=== PATIENT | female | born 2000 | race African-American/Black ===

== ENCOUNTER 2018-05-10 13:37 | Emergency (ER) | payer OTHER, SELFPAY ==
[2018-05-10 13:46] VITALS: BP 116/78; PULSE 71; RESP 22; TEMP 36.8; O2SAT 100; BMI 21.2
[2018-05-10] MEDS: diphenhydrAMINE 50 MG/ML VIAL IM (13:56)
[2018-05-10] MEDS: HALOPERIDOL 5 MG/ML VIAL IM (13:56)
[2018-05-10] MEDS: LORazepam 2 MG/ML SYRINGE IM (13:56)
--- NOTE | 2018-05-10 14:04 | PC.NURSE ---
Per sister pt had PTSD. pt and sister are identical twins adopted from [place] when they were 4. pt does not have a good relationship with adoptive parents. when sister approached here today pt c/o not feeling good pt then vomited a few times. per sister she could tell pt started becoming anxious, when pt stated to sister get this out of me and pointed to her chest. pt then c/o heart hurting, beating fast. per sister she doesnt remember specifics about [place] but knows bad things happened. pt laying on stretcher holding onto sisters hand.
--- NOTE | 2018-05-10 14:21 | RT ---
Came by for EKG. Patient refusing at this time, saying she wants to sleep. Sister tried getting her to agree to doing it, but patient insists she wants to sleep, unable to hold still, very restless. Informed FACUNDO Ny of situation and offered to come back when patient more compliant.
--- NOTE | 2018-05-10 15:01 | ED.PSYCH ---
HPI - Psych General Chief Complaint: Psychiatric Symptoms Stated Complaint: PTSD Time Seen by Provider: 05/10/18 13:40 Source: patient and family Mode of arrival: ambulatory Limitations: altered mental status History of Present Illness HPI Narrative: 18-year-old nonsmoker with known history of anxiety, PTSD and ADHD presents with her sister and other family in an extremely upset state. We are called to the parking lot to assist parents getting her out of the car and she is flailing her arms and screaming. She has known psychiatric diagnoses as stated and has not been taking her meds for the past few days. She is under the care of a local therapist, currently that name is unknown. She is supposed to take Adderall, hydroxyzine, and sertraline. She has never had any psychiatric hospitalizations that are known. She normally does quite well and is unclear exactly what triggered her episode today. Twin sister is at the bedside and is very reluctant to talk about why patient has history of PTSD but had mentioned to a nurse that had to do with the untimely of her parents in [facility] MD complaint: altered mental status Onset (ago): hour(s) Duration: getting worse History of same: Yes Relieving factors: none Context: not taking psychiatric medications Related Data Home Medications Medication Instructions Recorded Confirmed levonorgestrel 20 mcg/24 hr (5 INTRAUTERINE each 01/13/18 01/13/18 years) intrauterine device Previous Rx's Medication Instructions Recorded dextroamphetamine-amphetamine ER 15 mg PO QDAY #30 cap 04/08/18 15 mg 24hr capsule,extend release hydroxyzine HCl 25 mg tablet 25 mg PO TID PRN #30 tab 04/08/18 sertraline 100 mg tablet 100 mg PO DAILY #30 tab 05/05/18 lorazepam 1 mg PO BID-TID PRN #10 tab 05/10/18 Allergies Allergy/AdvReac Type Severity Reaction Status Date / Time No Known Drug Allergies Allergy Verified 05/10/18 13:46 Review of Systems Review of Systems All systems reviewed & are unremarkable except as noted in HPI and below Constitutional Denies chills, Denies fever(s), Denies lethargy and Denies weakness Eyes Denies change in vision, Denies eye discharge, Denies irritation and Denies loss of vision ENT Ears, Nose, Mouth, and Throat: Denies change in voice, Denies neck pain and Denies sore throat Cardiovascular Denies chest pain, Denies irregular heart rhythm, Denies lightheadedness, Denies palpitations, Denies dyspnea, Denies dyspnea on exertion and Denies orthopnea Respiratory Denies cough, Denies dyspnea, Denies dyspnea on exertion and Denies wheezing Gastrointestinal Gastrointestinal: Denies abdominal pain, Denies change in bowel habits, Denies diarrhea, Denies nausea and Denies vomiting Genitourinary Denies hematuria, Denies flank pain, Denies urinary incontinence and Denies urinary urgency Musculoskeletal Denies neck pain Integumentary/Breasts Denies pruritus, Denies erythema, Denies rash and Denies wounds Neurologic Denies confusion, Denies loss of vision and Denies weakness Psychiatric Reports anxiety, Denies confusion, Denies depression, Reports panic attacks, Denies homicidal ideation and Denies suicidal ideation Endocrine Denies palpitations Hematologic/Lymphatic Denies easy bruising Allergic/Immunologic Denies wheezing PFSH Medical History ADHD (Chronic) Social History marital status: unmarried,single household members: other education level: college (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 She is flailing her arms and fighting, screaming nonsensically and posing tremendous risk to herself and others Initial Vital Signs Initial Vital Signs: Vital Signs Temperature 98.3 F 05/10/18 13:46 Pulse Rate 71 05/10/18 13:46 Respiratory Rate 22 05/10/18 13:46 Blood Pressure 116/78 05/10/18 13:46 Pulse Oximetry 100 05/10/18 13:46 Const General: acute distress, combative and diaphoretic Nutritional Appearance: thin Orientation: confused Limitations: altered mental status HENMT Head: normocephalic and atraumatic Ears: external ears normal and TM's normal bilaterally Nose: external nose normal and No nasal discharge Face and sinus: sinuses nontender, face symmetric, no sinus tenderness and No dry mucous membranes Mouth: oral mucosae normal and moist mucous membranes Teeth and gingiva: dentition normal Throat: tonsils normal and uvula midline Eyes General: appearance normal, both eyes and all related structures Eyelids: eyelids normal Conjunctivae: conjunctivae normal Sclera: sclerae normal Pupils: PERRL EOM: EOM intact bilaterally Neck Neck: normal visual inspection, trachea midline, No lymphadenopathy, No midline deformity and No JVD Lymphatic: No lymphedema Chest Chest: normal inspection of the chest Resp Effort & Inspection: normal respiratory effort, able to speak in complete sentences, no respiratory distress and no use of accessory muscles Auscultation: clear to auscultation bilaterally, no rales, no rhonchi and no wheezes Cardio Rate: regular rate Rhythm: regular rhythm Heart Sounds: no click, no gallops, no murmurs and no rubs Pulses: normal peripheral pulses GI Inspection: non-distended Palpation: soft, no hepatosplenomegaly, No guarding, No pulsatile mass and No tender Auscultation: normal bowel sounds Skin General: no rashes or lesions noted, No jaundice and No petechiae Neuro General: moves all extremities and no focal motor deficits Cognition: abnormal cognition Gait: normal gait Motor: muscle tone normal throughout Extrem General: full ROM, no clubbing, cyanosis or edema, no pedal edema and no calf tenderness Psych Appearance: disheveled Speech and Movement: agitated Mood: paranoid and irritable mood Affect: anxious affect Attitude: belligerent Judgment: poor Course Orders Ordered: Discontinued Medications Diphenhydramine HCl (Benadryl) 50 mg IM NOW ONE Stop: 05/10/18 13:54 Last Admin: 05/10/18 13:56 Dose: 50 mg Haloperidol (Haldol) 5 mg IM NOW ONE Stop: 05/10/18 13:51 Last Admin: 05/10/18 13:56 Dose: 5 mg Lorazepam (Ativan) 2 mg IM NOW ONE Stop: 05/10/18 13:51 Last Admin: 05/10/18 13:56 Dose: 2 mg Lorazepam (Ativan) 1 mg PO NOW ONE Stop: 05/10/18 21:51 Last Admin: 05/10/18 21:56 Dose: 1 mg Reevaluation(s) Reevaluation #1: On arrival patient poses a significant risk to herself and others. She had no insight and did not respond to verbal deescalation. She is in excited delirium and paranoid. With the assistance of the police and her twin sister she was taken to room 13 and chemical restraints were used and ordered. Vital Signs - 8 hr 05/10/18 13:46 Temperature 98.3 F Pulse Rate 71 Respiratory Rate 22 Blood Pressure 116/78 Pulse Oximetry 100 Mental Status Exam Patient Appearance: Unkempt, Disheveled and Bizarre Level of Consciousness: Combative Speech Pattern: Animated, Pressured and Rambling Mood Description: Angry, Fearful and Hostile Ability to Follow Directions: Poor Physical Status Respirations: Normal respiratory rate Cardiac: tachycardic Circulation: Moves all extremities Assessment of Situation Behavior necessitating restraint: Violent Restraint Risks: Airway obstruction Restraint risks explained to patient: No Restraint risks explained to family: Yes Patient's response to restraint use: calm and cooperative MDM - Psych Lab Data Result diagrams: 05/10/18 15:04 05/10/18 15:04 Lab Results 05/10/18 05/10/18 05/10/18 Range/Units 15:04 15:04 15:04 WBC 8.5 (4.5-11.0) X10^3/uL RBC 4.21 (4.0-5.2) X10^6/uL Hgb 12.4 (12.0-16.0) g/dL Hct 36.8 (36-46) % MCV 87.4 (80-100) fL MCH 29.4 (26-34) PG MCHC 33.6 (30-36) % RDW 13.2 (11.6-14.8) % Plt Count 229 (150-400) X10^3/uL Neut % (Auto) 80.1 H (50-75) % Lymph % (Auto) 14.2 L (25-40) % [place] % (Auto) 5.1 (3-14) % Eos % (Auto) 0.3 L (2-4) % Baso % (Auto) 0.3 (0-2) % Neut # (Auto) 6800 (4552-4116) /uL Sodium 144 (137-145) mmol/L Potassium 4.2 (3.4-5.1) mmol/L Chloride 103 (98-107) mmol/L Carbon Dioxide 26 (22-32) mmol/L BUN 16 (7-17) mg/dL Creatinine 0.70 (0.52-1.04) mg/dL Estimated GFR > 60.0 (>60) mL/min BUN/Creatinine Ratio 22.9 H (6-22) Glucose 83 (70-100) mg/dL Calcium 9.3 (8.4-10.2) mg/dL Total Bilirubin 0.7 (0.2-1.3) mg/dL AST 40 H (14-36) IU/L ALT 36 (9-52) IU/L Alkaline Phosphatase 48 (38-126) U/L Total Protein 7.8 (6.3-8.2) g/dL Albumin 4.8 (3.5-5.0) g/dL Globulin 3.0 (1.7-4.1) g/dL Albumin/Globulin Ratio 1.6 (1.0-2.8) TSH 4.07 (0.47-4.68) uIU/mL Urine RBC (0-5/HPF) Urine WBC (0-5/HPF) Ur Squamous Epith Cells Urine Bacteria (None) Ur Culture Indicated? Micro UA Comment Urine Opiates Screen (Negative) Ur Oxycodone Screen (Negative) Urine Methadone Screen (Negative) Ur Barbiturates Screen (Negative) U Tricyclic Antidepress (Negative) Ur Phencyclidine Scrn (Negative) Ur Amphetamines Screen (Negative) U Methamphetamines Scrn (Negative) Ur MDMA Scrn (Ecstasy) (Negative) U Benzodiazepines Scrn (Negative) Urine Cocaine Screen (Negative) U Marijuana (THC) Screen (Negative) Ethyl Alcohol < 10 mg/dL 05/10/18 05/10/18 Range/Units Unknown Unknown WBC (4.5-11.0) X10^3/uL RBC (4.0-5.2) X10^6/uL Hgb (12.0-16.0) g/dL Hct (36-46) % MCV (80-100) fL MCH (26-34) PG MCHC (30-36) % RDW (11.6-14.8) % Plt Count (150-400) X10^3/uL Neut % (Auto) (50-75) % Lymph % (Auto) (25-40) % [place] % (Auto) (3-14) % Eos % (Auto) (2-4) % Baso % (Auto) (0-2) % Neut # (Auto) (4405-1923) /uL Sodium (137-145) mmol/L Potassium (3.4-5.1) mmol/L Chloride (98-107) mmol/L Carbon Dioxide (22-32) mmol/L BUN (7-17) mg/dL Creatinine (0.52-1.04) mg/dL Estimated GFR (>60) mL/min BUN/Creatinine Ratio (6-22) Glucose (70-100) mg/dL Calcium (8.4-10.2) mg/dL Total Bilirubin (0.2-1.3) mg/dL AST (14-36) IU/L ALT (9-52) IU/L Alkaline Phosphatase (38-126) U/L Total Protein (6.3-8.2) g/dL Albumin (3.5-5.0) g/dL Globulin (1.7-4.1) g/dL Albumin/Globulin Ratio (1.0-2.8) TSH (0.47-4.68) uIU/mL Urine RBC 1-5/hpf (0-5/HPF) Urine WBC 0-1/hpf (0-5/HPF) Ur Squamous Epith Cells 0-1 /hpf Urine Bacteria None seen (None) Ur Culture Indicated? Cult not indicated Micro UA Comment Not Reportable Urine Opiates Screen Negative (Negative) Ur Oxycodone Screen Negative (Negative) Urine Methadone Screen Negative (Negative) Ur Barbiturates Screen Negative (Negative) U Tricyclic Antidepress Negative (Negative) Ur Phencyclidine Scrn Negative (Negative) Ur Amphetamines Screen Negative (Negative) U Methamphetamines Scrn Negative (Negative) Ur MDMA Scrn (Ecstasy) Negative (Negative) U Benzodiazepines Scrn Negative (Negative) Urine Cocaine Screen Negative (Negative) U Marijuana (THC) Screen Positive H (Negative) Ethyl Alcohol mg/dL Point of Care Testing Test Results Negative Urine Dip Bedside Urine Glucose Negative Bedside Urine Bilirubin - Negative Bedside Urine Ketone - Negative Urine Specific [place] 1.025 Bedside Urine Occult Blood ++ Bedside Urine pH 6.0 Bedside Urine Protein - Negative Bedside Urine Urobilinogen - Negative Bedside Urine Nitrite - Negative Bedside Urine Leukocytes - Negative Esterase Discharge Plan Departure Patient Disposition: Home Clinical Impression: Agitation Discharge Date/Time: 05/10/18 22:05 Interventions: ED Discharge Assessment Last Done: 05/10/18 22:18 Instructions: DI for Anxiety -- Adult Activity Restrictions/Additional Instructions: Follow-up with her primary care physician in the next week for recheck call for an appointment. You may continue home medications as prescribed. Continue lorazepam as prescribed, this medication can make you sleepy do not drive, perform hazards activities or make any major decisions while taking it. If you feel you need to go to [facility]. Return to the emergency department for worsening symptoms, if you feel urine safe or if others are in safe around she. Below is the crisis hotline number but is also a resource number for same day or next day psychiatric appointments and mental health counseling as well as resources. If you're feeling suicidal or having suicidal thoughts, contact the suicide hotline: . Prescriptions: New lorazepam 1 mg tablet 1 mg PO BID-TID PRN (Reason: anxiety) Qty: 10 RF: 0 No Action levonorgestrel [Mirena] 20 mcg/24 hr (5 years) intrauterine device Intrauterine RF: 0 hydroxyzine HCl 25 mg tablet 25 mg PO TID PRN (Reason: anxiety) Qty: 30 RF: 0 dextroamphetamine-amphetamine [Adderall XR] 15 mg capsule,extended release 24hr 15 mg PO QDAY Qty: 30 RF: 0 sertraline 100 mg tablet 100 mg PO DAILY Qty: 30 RF: 2 Referrals: Soumya Lopes DO [Primary Care Provider] -
--- NOTE | 2018-05-10 15:04 | PC.NURSE ---
Attempted to get EKG due to patient complaint of chest pain. Pt refused EKG and would not hold still for the exam. Notified provider.
[2018-05-10 15:15] LABS: Add Manual Diff / Slide Review NO; Basophils Percent Auto 0.3 % (0-2); Eosinophils Percent Auto 0.3 % (2-4); Hematocrit 36.8 % (36-46); Hemoglobin 12.4 g/dL (12.0-16.0); Lymphocytes Percent Auto 14.2 % (25-40); Mean Corpuscular HGB Conc 33.6 % (30-36); Mean Corpuscular Hemoglobin 29.4 PG (26-34); Mean Corpuscular Volume 87.4 fL (80-100); Monocytes Percent Auto 5.1 % (3-14); Neutrophils Absolute Auto 6800 /uL (1500-7000); Neutrophils Percent Auto 80.1 % (50-75); Platelet Count 229 X10^3/uL (150-400); Red Blood Cell Count 4.21 X10^6/uL (4.0-5.2); Red Cell Distribution Width 13.2 % (11.6-14.8); White Blood Cell Count 8.5 X10^3/uL (4.5-11.0)
[2018-05-10 15:24] LABS: Alanine Aminotransferase 36 IU/L (9-52); Albumin 4.8 g/dL (3.5-5.0); Albumin Globulin Ratio 1.6 (1.0-2.8); Alkaline Phosphatase 48 U/L (38-126); Aspartate Aminotransferase 40 IU/L (14-36); BUN Creatinine Ratio 22.9 (6-22); Bilirubin Total 0.7 mg/dL (0.2-1.3); Blood Urea Nitrogen 16 mg/dL (7-17); Calcium 9.3 mg/dL (8.4-10.2); Carbon Dioxide 26 mmol/L (22-32); Chloride 103 mmol/L (98-107); Estimated Glomerular Filt Rate > 60.0 mL/min (>60); Ethanol (ETOH) < 10 mg/dL; Glucose 83 mg/dL (70-100); HEMOLYSIS < 15 (0-50); Potassium 4.2 mmol/L (3.4-5.1); Sodium 144 mmol/L (137-145); Total Protein 7.8 g/dL (6.3-8.2)
[2018-05-10 16:15] LABS: Thyroid Stimulating Hormone 4.07 uIU/mL (0.47-4.68)
[2018-05-10 16:26] LABS: Bacteria Urine None Seen
[2018-05-10 16:32] LABS: Urine Amphetamines Negative (Negative); Urine Barbiturates Negative (Negative); Urine Benzodiazepines Negative (Negative); Urine Cocaine Negative (Negative); Urine MDMA Negative (Negative); Urine Methadone Negative (Negative); Urine Methamphetamines Negative (Negative); Urine Morphine/Opi cutoff 2000 Negative (Negative); Urine Oxycodone Negative (Negative); Urine Phencyclidine Negative (Negative); Urine Tetrahydrocannabinol Positive (Negative); Urine Tricyclic Antidepressant Negative (Negative)
[2018-05-10 16:34] LABS: RBC Urine 1-5/HPF (0-5/HPF); Squamous Epithelial Cell Urine 0-1 /HPF; WBC Urine 0-1/HPF (0-5/HPF)
[2018-05-10 16:35] LABS: Culture Indicated Urine Cult Not Indicated
[2018-05-10 19:16] VITALS: BP 88/69; PULSE 68; RESP 14; O2SAT 100
--- NOTE | 2018-05-10 19:35 | PC.NURSE ---
Pt laying down with visitor in room
--- NOTE | 2018-05-10 19:36 | PC.NURSE ---
Pt laying down with visitor in room
--- NOTE | 2018-05-10 20:18 | PC.NURSE ---
Pt laying down with visitor in room
--- NOTE | 2018-05-10 20:20 | PC.NURSE ---
Pt laying down with visitor in room
[2018-05-10 20:56] VITALS: BP 121/77; PULSE 56; RESP 16; O2SAT 100
--- NOTE | 2018-05-10 21:02 | PC.NURSE ---
Pt laying down with visitor in room
--- NOTE | 2018-05-10 21:03 | PC.NURSE ---
Pt laying down with visitor in room
--- NOTE | 2018-05-10 21:03 | PC.NURSE ---
Pt laying down with visitor in room
--- NOTE | 2018-05-10 21:16 | PC.NURSE ---
Pt laying down with visitor in room
--- NOTE | 2018-05-10 21:36 | PC.NURSE ---
Pt laying down with visitor in room
--- NOTE | 2018-05-10 21:51 | PC.NURSE ---
Pt laying down with visitor in room
[2018-05-10] MEDS: LORazepam 0.5 MG TABLET 1 MG PO (21:56)
[2018-05-10 22:18] VITALS: BP 94/68; PULSE 71; RESP 18; O2SAT 97
--- NOTE | 2018-05-10 22:34 | PC.NURSE ---
Unable to obtain EKG initially due to patient refusal and inability to keep still during the EKG. Provider aware.
== END 2018-05-10 22:05 | disposition home or self-care (01) ==
PROVIDERS: Emergency Medicine; Emergency Provider Emergency Medicine; PCP Family Medicine
DX: R45.1 Restlessness and agitation (principal)
CPT/HCPCS: 36415; 80053; 80305; 80320; 81003; 81015; 81025; 84443; 85025; 93005; 96372; 99284; 99285; J1200; J1630; J2060

== ENCOUNTER → 2018-07-04 15:33 | Outpatient (CLI) | payer OTHER, SELFPAY ==
--- NOTE | 2018-07-04 15:38 | DI.RAD.S_ITS ---
PROCEDURE: XR CHEST 2V INDICATIONS: L rib pain TECHNIQUE: 2 views of the chest were acquired. COMPARISON: [facility], , CHEST 2 VIEW, 03/01/2017, 9:39. FINDINGS: Surgical changes and devices: None. Lungs and pleura: Lungs are clear. No pleural effusions or pneumothorax. Mediastinum: Mediastinal contours are normal. Heart size is normal. Bones and chest wall: In this patient with this given history, scrutiny is given to the left ribs. To the limits of this study, no focal left rib abnormality is seen. No suspicious bony abnormalities. Soft tissues appear unremarkable. IMPRESSION: No left rib abnormality is seen. Normal plain film study. Dictated by: Titi Davis M.D. on 07/04/2018 at 15:42 Approved by: Titi Davis M.D. on 07/04/2018 at 15:43
== END ==
PROVIDERS: PCP Family Medicine; Visit Provider Physician Assistant
DX: R07.81 Pleurodynia (principal)
CPT/HCPCS: 71046

== ENCOUNTER → 2019-05-28 10:48 | Outpatient (CLI) | payer OTHER, SELFPAY ==
[2019-05-28 11:40] LABS: Influenza A - CEPHEID Flu A NEGATIVE (NEGATIVE); Influenza B - CEPHEID Flu B POSITIVE (NEGATIVE)
== END ==
PROVIDERS: PCP Family Medicine; Visit Provider Family Medicine
DX: J06.9 Acute upper respiratory infection, unspecified (principal)
CPT/HCPCS: 87502

== ENCOUNTER → 2020-10-24 12:46 | Outpatient (CLI) | payer OTHER, SELFPAY ==
[2020-10-24 13:22] LABS: COVID19 -Nasal RAPID Negative (Negative)
== END ==
PROVIDERS: PCP Family Medicine; Visit Provider Student in an Organized Health Care Education/Training Program
DX: R05 Cough (principal)
CPT/HCPCS: 87635